=== PATIENT | male | born 1970 | race Caucasian/White ===

== ENCOUNTER 2019-12-16 20:42 | Emergency (ER) | payer MEDICAID, SELFPAY ==
[~2019-12-16] VITALS: Ht 175.3 cm; Wt 80.5 kg
[2019-12-16 20:45] VITALS: BP 127/80
[2019-12-16] MEDS ORDERED: LIDOCAINE 1%-EPI 1:100K, 20ML ONE (20:56)
[2019-12-16] MEDS ORDERED: FLUORESCEIN OPHTHALMIC 1 MG STRIP ONE (20:56)
[2019-12-16] MEDS ORDERED: PROPARACAINE OPHTH 0.5%, 15ML ONE (20:57)
== END 2019-12-16 22:11 | disposition home or self-care (01) ==
LOC: ED 20:45
DX: S05.01XA Injury of conjunctiva and corneal abrasion without foreign body, right eye, initial encounter (principal); H16.8 Other keratitis; F17.200 Nicotine dependence, unspecified, uncomplicated; X58.XXXA Exposure to other specified factors, initial encounter; Y93.89 Activity, other specified; Y92.89 Other specified places as the place of occurrence of the external cause; Y99.8 Other external cause status
CPT/HCPCS: 99283